=== PATIENT | female | born 1960 | race Caucasian/White ===

== ENCOUNTER → 2018-01-13 16:06 | Outpatient (CLI) | payer OTHER, SELFPAY ==
--- NOTE | 2018-01-13 16:09 | DI.CT.S_ITS ---
PROCEDURE: CT CHEST W CON INDICATIONS: MEDIASTINAL MASS, HISTORY OF LEFT BREAST CANCER 2016 TECHNIQUE: After the administration of intravenous contrast, 5 mm thick sections acquired from the pulmonary apices to the posterior costophrenic angles. 7 mm thick coronal and sagittal MIP reformats were acquired. For radiation dose reduction, the following was used: automated exposure control, adjustment of mA and/or kV according to patient size. COMPARISON: [facility], , THYROID, 08/12/2017, 15:17. FINDINGS: Image quality: Excellent. Lungs and pleura: Atelectasis in posterior lateral aspect of left lingula segment and left lung base is seen. No discrete dominant nodule or mass is seen. No pleural effusions or pneumothorax. Central and peripheral airways are patent and normal in caliber. Mediastinum: Heart size is normal. No pericardial effusion. No mediastinal or hilar adenopathy by size criteria. Thoracic aorta and central pulmonary arteries are normal in size. Esophagus is normal in caliber. Small hiatal hernia. Bones and chest wall: No suspicious bony lesions. No vertebral body compression fractures. No axillary or supraclavicular adenopathy by size criteria. Asymmetrically enlarged right thyroid lobe with a 4 x 2.6 x 5.6 cm soft tissue density nodule involving posterior aspect of lower pole right thyroid lobe extending into upper mediastinum along the right paratracheal space. Central area of necrosis is seen. Surgical clips are noted in left axilla. Abdomen: Visualized upper abdominal solid organs appear normal. Mild hepatic steatosis is seen. Upper abdominal bowel loops are normal in caliber. IMPRESSION: 1. Asymmetrically enlarged right thyroid lobe with suggestion of a 4 x 2.6 x 5.6 cm exophytic nodule involving posterior aspect of lower pole right thyroid lobe with inferior extension into right upper mediastinum. Central area of necrosis is seen. Finding may represent benign or malignant thyroid lesion. Consider nuclear medicine thyroid scan for further evaluation. Fundal aspiration of this nodule can also be done for tissue diagnosis. 2. No mediastinal or hilar adenopathy. 3. Left lingular atelectasis. Bilateral lung cannon are otherwise clear. Airway is patent. Dictated by: Agapito Anne M.D. on 01/13/2018 at 17:02 Approved by: Agapito Anne M.D. on 01/13/2018 at 17:08
[2018-01-13 17:42] LABS: Add Manual Diff / Slide Review NO; Basophils Percent Auto 0.9 % (0-2); Hematocrit 40.4 % (36-46); Hemoglobin 13.5 g/dL (12.0-16.0); Lymphocytes Percent Auto 32.3 % (25-40); Mean Corpuscular HGB Conc 33.5 % (30-36); Mean Corpuscular Hemoglobin 28.7 PG (26-34); Mean Corpuscular Volume 85.7 fL (80-100); Monocytes Percent Auto 7.6 % (3-14); Neutrophils Absolute Auto 4600 /uL (3000-5900); Neutrophils Percent Auto 56.2 % (50-75); Platelet Count 263 X10^3/uL (150-400); Red Blood Cell Count 4.71 X10^6/uL (4.0-5.2); White Blood Cell Count 8.1 X10^3/uL (4.5-11.0)
[2018-01-13 18:18] LABS: Alanine Aminotransferase 30 IU/L (9-52); Albumin Globulin Ratio 1.5 (1.0-2.8); Alkaline Phosphatase 97 U/L (38-126); Aspartate Aminotransferase 22 IU/L (14-36); BUN Creatinine Ratio 21.4 (6-22); Bilirubin Total 0.3 mg/dL (0.2-1.3); Blood Urea Nitrogen 15 mg/dL (7-17); Calcium 8.8 mg/dL (8.4-10.2); Carbon Dioxide 26 mmol/L (22-32); Chloride 104 mmol/L (98-107); Estimated Glomerular Filt Rate > 60.0 mL/min (>60); Globulin 2.6 g/dL (1.7-4.1); Glucose 103 mg/dL (70-100); HEMOLYSIS < 15 (0-50); Potassium 4.5 mmol/L (3.4-5.1); Sodium 140 mmol/L (137-145); Total Protein 6.6 g/dL (6.3-8.2)
== END ==
PROVIDERS: Family Provider Family Medicine; PCP Family Medicine; Visit Provider Nurse Practitioner Gerontology
DX: J98.59 Other diseases of mediastinum, not elsewhere classified (principal); C50.912 Malignant neoplasm of unspecified site of left female breast; E04.9 Nontoxic goiter, unspecified; J98.11 Atelectasis
CPT/HCPCS: 36415; 71260; 80053; 85025; Q9967

== ENCOUNTER 2018-01-21 14:25 | Oncology outpatient (ONC) | payer OTHER, SELFPAY ==
[2018-01-21 14:57] VITALS: BP 135/74; PULSE 59; RESP 18; TEMP 36.9; O2SAT 95
--- NOTE | 2018-01-21 15:03 | ONC.PN ---
PN -Subjective Interval history: Diagnosis: Breast cancer, T2 N0 ER NE negative her 2 positive Previous treatment: 1. Neoadjuvant chemotherapy with Taxol Herceptin and Perjeta for 4 cycles 2. lumpectomy and sentinel node biopsy October 2015 with complete pathologic response. 3. Adjuvant radiation 4. Herceptin to complete 1 year of therapy finishing in July 2016. Interval history: Patient is a 57-year-old woman who returns today for follow-up of breast cancer. Since her last visit here, she has been feeling generally well. She has no specific complaints today. She denies any new aches or pains. No changes in the breast that she can tell. She does have occasional swelling on the chest wall and under the arm on the left side but not in the hand. It has not been persistent or bothersome. She denies any shortness of breath or cough. No GI complaints. She denies any other changes in her health. Her medications include atenolol omeprazole and allergy medication. Social history: She works at the school in seafood processor. She does not smoke. Home Medications and Allergies Home Medications Medication Instructions Recorded Confirmed Type atenolol 0 #0 11/01/11 09/23/17 History omeprazole 20 mg PO QDAY PRN #0 11/01/11 09/23/17 History cetirizine 10 mg PO QDAYP PRN #0 07/30/17 09/23/17 History acetaminophen [Tylenol] 325 mg PO PRN PRN 01/21/18 01/21/18 History ibuprofen [Advil] 200 mg PO PRN PRN 01/21/18 01/21/18 History [id number] 01/21/18 History [Airborne (lysine HCl)] Allergies Allergy/AdvReac Type Severity Reaction Status Date / Time No Known Drug Allergies Allergy Unverified 09/23/17 14:49 Exam Vital signs: Last Vital Signs Temp 98.4 F 01/21/18 14:57 Pulse 59 L 01/21/18 14:57 Resp 18 01/21/18 14:57 BP 135/74 01/21/18 14:57 Pulse Ox 95 01/21/18 14:57 - Constitutional positive no acute distress, positive average body habitus - Routine HEENT Exam Head: Present: normocephalic, atraumatic Eye: Present: EOMI, PERRL. Absent: conjunctival icterus, scleral injection ENT: Present: mucous membranes moist, oropharynx clear - Routine Neck Exam Present: supple. Absent: lymphadenopathy, thyromegaly - Routine Chest/Breast/Axilla Exam Chest wall exam standard: Absent: tenderness Breast: Present: scars (She has a well-healed incision on the left breast just above the nipple. There are no masses on either side. No axillary adenopathy.). Absent: tenderness, mass - Routine Respiratory Exam Present: Clear to auscultation bilaterally. Absent: rales, wheezes - Routine Cardiovascular Exam Present: RRR, S1, S2. Absent: murmur - Routine Abdominal Exam Present: soft, normoactive bowel sounds. Absent: tenderness, organomegaly, mass - Routine Extremities Exam Absent: cyanosis, clubbing, edema Comments: There is no lymphedema. - Routine Back/Spine Exam Back/Spine: Absent: paraspinal tenderness, vertebral tenderness - Routine Skin Exam Present: intact. Absent: petechiae, rash - Routine Neurological Exam Present: alert, oriented X3 - Routine Psychiatric Exam Present: normal affect, normal thought process Results - Imaging Additional studies: Procedures Colonoscopy (04/29/12) Assessment and Plan (1) Breast cancer Problem details: 57-year-old woman with a history of stage II her 2 positive breast cancer who had a complete pathologic response to neoadjuvant chemotherapy. She is about 2 years out from her surgery. She has no evidence of recurrence and is doing well. She will be due for a mammogram sometime over the winter. She will return to clinic in about 6 months for follow-up. She does have a history of a thyroid nodule that previously has been biopsied and benign but it does appear to be enlarging by recent chest CT. It currently measures 4 x 2.6 x 5.6 cm. In 2016 it was 2.6 x 1.8 cm. Will make referral to Endocrinology for further evaluation. Current visit: No Status: Inactive
--- NOTE | 2018-01-21 15:09 | P.PNONC_ITS ---
PN -Subjective Interval history: Diagnosis: Breast cancer, T2 N0 ER CO negative her 2 positive Previous treatment: 1. Neoadjuvant chemotherapy with Taxol Herceptin and Perjeta for 4 cycles 2. lumpectomy and sentinel node biopsy October 2015 with complete pathologic response. 3. Adjuvant radiation 4. Herceptin to complete 1 year of therapy finishing in July 2016. Interval history: Patient is a 57-year-old woman who returns today for follow-up of breast cancer. Since her last visit here, she has been feeling generally well. She has no specific complaints today. She denies any new aches or pains. No changes in the breast that she can tell. She does have occasional swelling on the chest wall and under the arm on the left side but not in the hand. It has not been persistent or bothersome. She denies any shortness of breath or cough. No GI complaints. She denies any other changes in her health. Her medications include atenolol omeprazole and allergy medication. Social history: She works at the school in food service associate. She does not smoke. Home Medications and Allergies Home Medications Medication Instructions Recorded Confirmed Type atenolol 0 #0 11/01/11 09/23/17 History omeprazole 20 mg PO QDAY PRN #0 11/01/11 09/23/17 History cetirizine 10 mg PO QDAYP PRN #0 07/30/17 09/23/17 History acetaminophen [Tylenol] 325 mg PO PRN PRN 01/21/18 01/21/18 History ibuprofen [Advil] 200 mg PO PRN PRN 01/21/18 01/21/18 History [id number] 01/21/18 History [Airborne (lysine HCl)] Allergies Allergy/AdvReac Type Severity Reaction Status Date / Time No Known Drug Allergies Allergy Unverified 09/23/17 14:49 Exam Vital signs: Last Vital Signs Temp 98.4 F 01/21/18 14:57 Pulse 59 L 01/21/18 14:57 Resp 18 01/21/18 14:57 BP 135/74 01/21/18 14:57 Pulse Ox 95 01/21/18 14:57 - Constitutional positive no acute distress, positive average body habitus - Routine HEENT Exam Head: Present: normocephalic, atraumatic Eye: Present: EOMI, PERRL. Absent: conjunctival icterus, scleral injection ENT: Present: mucous membranes moist, oropharynx clear - Routine Neck Exam Present: supple. Absent: lymphadenopathy, thyromegaly - Routine Chest/Breast/Axilla Exam Chest wall exam standard: Absent: tenderness Breast: Present: scars (She has a well-healed incision on the left breast just above the nipple. There are no masses on either side. No axillary adenopathy.) . Absent: tenderness, mass - Routine Respiratory Exam Present: Clear to auscultation bilaterally. Absent: rales, wheezes - Routine Cardiovascular Exam Present: RRR, S1, S2. Absent: murmur - Routine Abdominal Exam Present: soft, normoactive bowel sounds. Absent: tenderness, organomegaly, mass - Routine Extremities Exam Absent: cyanosis, clubbing, edema Comments: There is no lymphedema. - Routine Back/Spine Exam Back/Spine: Absent: paraspinal tenderness, vertebral tenderness - Routine Skin Exam Present: intact. Absent: petechiae, rash - Routine Neurological Exam Present: alert, oriented X3 - Routine Psychiatric Exam Present: normal affect, normal thought process Results - Imaging Additional studies: Procedures Colonoscopy (04/29/12) Assessment and Plan (1) Breast cancer Problem details: 57-year-old woman with a history of stage II her 2 positive breast cancer who had a complete pathologic response to neoadjuvant chemotherapy. She is about 2 years out from her surgery. She has no evidence of recurrence and is doing well. She will be due for a mammogram sometime over the winter. She will return to clinic in about 6 months for follow-up. She does have a history of a thyroid nodule that previously has been biopsied and benign but it does appear to be enlarging by recent chest CT. It currently measures 4 x 2.6 x 5.6 cm. In 2016 it was 2.6 x 1.8 cm. Will make referral to Endocrinology for further evaluation. Current visit: No Status: Inactive
== END 2018-01-22 12:00 ==
LOC: ONC 14:27
PROVIDERS: Family Provider Family Medicine; PCP Family Medicine
DX: Z08 Encounter for follow-up examination after completed treatment for malignant neoplasm (principal); Z85.3 Personal history of malignant neoplasm of breast; E04.1 Nontoxic single thyroid nodule
CPT/HCPCS: 99215

== ENCOUNTER → 2018-07-08 11:40 | Outpatient (CLI) | payer OTHER, SELFPAY ==
--- NOTE | 2018-07-08 | DI.MG.S_ITS ---
BILATERAL DIGITAL SCREENING MAMMOGRAM 3D/2D WITH CAD POST LUMPECTOMY: 07/08/2018 CLINICAL: Routine screening. Personal history of left breast cancer. Family history of breast cancer. Comparison is made to exams dated: 06/21/2017 mammogram, 02/11/2017 mammogram, 05/31/2016 mammogram, 05/30/2015 mammogram, 11/26/2011 mammogram, and 01/07/2013 mammogram - [facility]. There are scattered fibroglandular elements in both breasts. Current study was also evaluated with a Computer Aided Detection (CAD) system. There are benign post operative findings in the left breast. No significant masses, calcifications, or other findings are seen in either breast. There has been no significant interval change. IMPRESSION: There is no mammographic evidence of malignancy. A 1 year screening mammogram is recommended. This exam was interpreted at Station ID: [id number]. NOTE: For mammograms, a report in lay terms will be sent to the patient. Approximately 15% of breast malignancies will not be visualized mammographically. In the management of a palpable breast mass, a negative mammogram must not discourage biopsy of a clinically suspicious lesion. Electronically Signed By: Juan armas/huang:07/08/2018 16:39:09 copy to: José Manuel Holm letter sent: Normal Exam ACR BI-RADS Category 2: Benign Finding(s) 3342F
== END ==
PROVIDERS: Family Provider Family Medicine; PCP Family Medicine
DX: Z12.31 Encounter for screening mammogram for malignant neoplasm of breast (principal); Z85.3 Personal history of malignant neoplasm of breast; Z80.3 Family history of malignant neoplasm of breast
CPT/HCPCS: 77063; 77067

== ENCOUNTER → 2018-09-24 14:43 | Outpatient (CLI) | payer OTHER, SELFPAY ==
--- NOTE | 2018-09-24 14:46 | DI.RAD.S_ITS ---
PROCEDURE: XR CHEST 2V INDICATIONS: History breast cancer left her 2 Mary positive TECHNIQUE: 2 views of the chest were acquired. COMPARISON: [facility], CR, CHEST 1 VIEW, 07/21/2015, 17:01. [facility], CT, CT CHEST W CON, 01/13/2018, 16:26. FINDINGS: Surgical changes and devices: There are surgical clips in the left breast and axilla. Lungs and pleura: Lungs are clear. No pleural effusions or pneumothorax. Mediastinum: Mediastinal contours are normal. Heart size is normal. Bones and chest wall: No suspicious bony abnormalities. Soft tissues appear unremarkable. IMPRESSION: No active cardiopulmonary disease. Dictated by: Petra Abreu M.D. on 09/24/2018 at 16:46 Approved by: Petra Abreu M.D. on 09/24/2018 at 16:48
== END ==
PROVIDERS: Family Provider Family Medicine; PCP Family Medicine; Visit Provider Specialist
DX: Z08 Encounter for follow-up examination after completed treatment for malignant neoplasm (principal); Z85.3 Personal history of malignant neoplasm of breast
CPT/HCPCS: 71046

== ENCOUNTER → 2019-09-12 12:38 | Outpatient (CLI) | payer OTHER, SELFPAY ==
--- NOTE | 2019-09-12 12:39 | DI.MG.S_ITS ---
BILATERAL DIGITAL SCREENING MAMMOGRAM 3D/2D WITH CAD POST LUMPECTOMY: 09/12/2019 CLINICAL: Routine screening. Personal history of left breast cancer. Family history of breast cancer. Comparison is made to exams dated: 07/08/2018 mammogram, 06/21/2017 mammogram, and 05/31/2016 mammogram - [facility]. There are scattered fibroglandular elements in both breasts. Current study was also evaluated with a Computer Aided Detection (CAD) system. There are benign post operative findings in the left breast. No significant masses, calcifications, or other findings are seen in either breast. There has been no significant interval change. IMPRESSION: There is no mammographic evidence of malignancy. A 1 year screening mammogram is recommended. This exam was interpreted at Station ID: [id number]. NOTE: For mammograms, a report in lay terms will be sent to the patient. Approximately 15% of breast malignancies will not be visualized mammographically. In the management of a palpable breast mass, a negative mammogram must not discourage biopsy of a clinically suspicious lesion. Electronically Signed By: Magen pereira/huang:09/14/2019 08:07:30 copy to: José Manuel Holm letter sent: Normal Exam ACR BI-RADS Category 2: Benign Finding(s) 3342F
== END ==
PROVIDERS: Family Provider Family Medicine; PCP Family Medicine; Referring Provider Internal Medicine Hematology & Oncology; Visit Provider Internal Medicine Hematology & Oncology
DX: Z12.31 Encounter for screening mammogram for malignant neoplasm of breast (principal); Z85.3 Personal history of malignant neoplasm of breast; Z80.3 Family history of malignant neoplasm of breast
CPT/HCPCS: 77063; 77067

== ENCOUNTER → 2020-05-04 14:46 | Outpatient (CLI) | payer OTHER, SELFPAY ==
[2020-05-04 15:37] LABS: Add Manual Diff / Slide Review NO; Basophils Absolute Auto 100 /uL (0-100); Basophils Percent Auto 0.9 % (0-2); Eosinophils Absolute Auto 200 /uL (0-450); Eosinophils Percent Auto 2.3 % (2-4); Hematocrit 43.1 % (36-46); Hemoglobin 14.3 g/dL (12.0-16.0); Lymphocytes Absolute Auto 3100 /uL (1100-4500); Lymphocytes Percent Auto 33.4 % (25-40); Mean Corpuscular HGB Conc 33.1 % (30-36); Mean Corpuscular Hemoglobin 28.3 PG (26-34); Mean Corpuscular Volume 85.5 fL (80-100); Monocytes Absolute Auto 600 /uL (0-900); Neutrophils Absolute Auto 5200 /uL (1500-7000); Neutrophils Percent Auto 56.4 % (50-75); Platelet Count 277 X10^3/uL (150-400); Red Blood Cell Count 5.04 X10^6/uL (4.0-5.2); Red Cell Distribution Width 13.2 % (11.6-14.8); White Blood Cell Count 9.2 X10^3/uL (4.5-11.0)
[2020-05-04 16:01] LABS: Alanine Aminotransferase 31 IU/L (<35); Albumin 4.5 g/dL (3.5-5.0); Albumin Globulin Ratio 1.5 (1.0-2.8); Alkaline Phosphatase 116 U/L (38-126); Aspartate Aminotransferase 27 IU/L (14-36); BUN Creatinine Ratio 24.7 (6-22); Bilirubin Total 0.3 mg/dL (0.2-1.3); Blood Urea Nitrogen 18 mg/dL (7-17); Calcium 9.1 mg/dL (8.4-10.2); Carbon Dioxide 27 mmol/L (22-32); Chloride 102 mmol/L (98-107); Estimated Glomerular Filt Rate > 60.0 mL/min (>60); Glucose 169 mg/dL (70-100); HEMOLYSIS < 15 (0-50); Potassium 4.4 mmol/L (3.4-5.1); Sodium 136 mmol/L (137-145); Total Protein 7.5 g/dL (6.3-8.2)
== END ==
PROVIDERS: Referring Provider Internal Medicine; Visit Provider Internal Medicine
DX: C50.919 Malignant neoplasm of unspecified site of unspecified female breast (principal)
CPT/HCPCS: 36415; 80053; 85025

== ENCOUNTER → 2020-05-09 16:05 | Outpatient (CLI) | payer OTHER, SELFPAY ==
--- NOTE | 2020-05-09 | DI.US.S_ITS ---
PROCEDURE: US PELVIC COMPLETE INDICATIONS: Pelvic and perineal pain TECHNIQUE: Real-time scanning was performed of the pelvic organs, with image documentation. Additional endovaginal scanning was necessary due to incomplete visualization of the adnexal and endometrial structures by transabdominal scanning. COMPARISON: [facility], , PELVIC COMPLETE, 11/19/2013, 10:09. FINDINGS: Uterus: Uterus is normal in size at 7.5 x 2.6 x 4.6 cm. The endometrium measures 3 mm in combined thickness. Ovaries: The right ovary is not seen. The left ovary has been previously removed. No adnexal masses are seen on either side. Other: No pathologic free abdominal or pelvic fluid. IMPRESSION: Nonvisualization of the right ovary. Prior left oophorectomy. Unremarkable appearing uterus. Dictated by: Dallas Myrick M.D. on 05/09/2020 at 16:54 Approved by: Dallas Myrick M.D. on 05/09/2020 at 16:56
== END ==
PROVIDERS: PCP Family Medicine; Referring Provider Family Medicine; Visit Provider Family Medicine
DX: R10.2 Pelvic and perineal pain (principal)
CPT/HCPCS: 76830; 76856

== ENCOUNTER → 2020-06-09 14:27 | Outpatient (CLI) | payer OTHER, SELFPAY ==
--- NOTE | 2020-06-09 15:41 | DIET.PN ---
Diabetes Intake: Initial Assessment Assess: Ms. León is a 60 yof referred for newly diagnosed type 2 diabetes. She has a pmhx significant for breast cancer with chemotherapy (2016). Since diagnosis she has been monitoring her fasting blood glucose and trying to make healthy eating habits. 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 She usually does not eat breakfast, but has started eating cereal in hopes of helping to manage her blood sugar. 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 Intervention: 1. Completed intake assessment. Discussed barriers to care. 2. Discussed pathophysiology of diabetes. Reviewed A1c and its correlation to blood glucose numbers. Discussed recommended BG ranges. 3. Discussed importance of self-monitoring, how often, and when to check. 4. Reviewed hyper/hypoglycemia and treatment. 5. Reviewed safe disposal of equipment (strip/lancets/insulin needles). 6. Created SMART goals for pt self-care and success. 7. Discussed program curriculum outline and class needs based on individual goals. SMART Goals: 1. Pt goal A1c <7.0 through monitoring fbg and 2 hr PP daily and weight loss goal of 198 lb (10lb) in 3 mo with overall goal of 170 lb. Monitor/Evaluate: Pt will attend full DSME program. Basic Nutrition class scheduled for Jun 14.
== END ==
PROVIDERS: PCP Family Medicine; Referring Provider Family Medicine; Visit Provider Family Medicine
DX: E11.9 Type 2 diabetes mellitus without complications (principal); E66.9 Obesity, unspecified; Z71.3 Dietary counseling and surveillance; Z79.84 Long term (current) use of oral hypoglycemic drugs; Z68.35 Body mass index [BMI] 35.0-35.9, adult; Z85.3 Personal history of malignant neoplasm of breast
CPT/HCPCS: G0108

== ENCOUNTER → 2020-06-14 13:52 | Outpatient (CLI) | payer OTHER, SELFPAY ==
--- NOTE | 2020-06-14 16:15 | DIET.PN ---
Diabetes Exercise/Lifestyle change: 1. Importance of exercise 2. FITT (frequency, intensity, time, type) 3. Strength training tips and guidelines 4. Glucose monitoring/ranges before and after a. Carbohydrate needs based on glucose ranges and duration/intensity of exercise b. Rule of 15 5. Proper foot attire 6. Developing strategies for behavior change 7. SMART Goal Setting 8. Home exercise routine demonstration (as a class)
== END ==
PROVIDERS: PCP Family Medicine; Referring Provider Family Medicine; Visit Provider Family Medicine
DX: E11.9 Type 2 diabetes mellitus without complications (principal); Z71.3 Dietary counseling and surveillance
CPT/HCPCS: G0109

== ENCOUNTER → 2020-06-21 13:50 | Outpatient (CLI) | payer OTHER, SELFPAY ==
--- NOTE | 2020-06-21 15:38 | DIET.PN ---
Diabetes: Healthy Eating 1 Intervention: ? Discussed pathophysiology of diabetes and impact of nutrition/diet on blood sugar control.? Discussed fed versus non-fed state.?? ? Reviewed importance of Balance, Variety, and Moderation. ? Discussed the effect of carbohydrates/protein/fat on blood sugar control.? ? Stressed importance of consistent carbohydrate intake at each meal and provided instructions for recommended servings/portions of carbohydrates/protein per meal. Provided educational material. ? Reviewed carbohydrate counting and measuring carbohydrate content via serving sizes and reading nutrition labels.? Provided handouts.?? ? Discussed the difference between simple versus complex carbohydrates and the effect of fiber on blood sugar control.? Discussed various methods to increase fiber content in diet. ? Discussed the plate method for creating more carbohydrate conscious balanced meals. ? Stressed importance of meal timing and not going >4-5 hours between meals. Encouraged adding protein to evening snack to support glucose control overnight. ? Discussed importance of making dietary habits part of lifestyle change.
== END ==
PROVIDERS: PCP Family Medicine; Referring Provider Family Medicine; Visit Provider Family Medicine
DX: E11.9 Type 2 diabetes mellitus without complications (principal); Z71.3 Dietary counseling and surveillance
CPT/HCPCS: G0109

== ENCOUNTER → 2020-06-28 13:55 | Outpatient (CLI) | payer OTHER, SELFPAY ==
--- NOTE | 2020-06-28 16:25 | DIET.PN ---
Diabetes: Healthy Eating 2 Intervention: Fats effects on glucose, weight, heart disease, cholesterol Sat Vs Unsat Protein- animal and plant based options Low, med, high fat meats Sugar substitutes Sodium Health claims Grocery shopping guidelines Eating away from home Alcohol Sick day guidelines Ketone Testing
== END ==
PROVIDERS: PCP Family Medicine; Referring Provider Family Medicine; Visit Provider Family Medicine
DX: E11.9 Type 2 diabetes mellitus without complications (principal); Z71.3 Dietary counseling and surveillance
CPT/HCPCS: G0109

== ENCOUNTER → 2020-08-15 14:24 | Outpatient (CLI) | payer OTHER, SELFPAY ==
--- NOTE | 2020-08-15 15:04 | DIET.PN ---
DIABETES Nutrition Initial Assessment:? ASSESS:?? Ms. León is a 60 yof?referred for type 2 diabetes seen as part of DSME program. She continues to monitor her FBG daily ranging between 110-140. She has been walking after work several times per week. Changes to eating habits include carb counting, portion control, and less take out aside from recent vacation. ??? LABS: Per pt report:? [id number] ? MEDS:?? metf 500mg BID ? DIET: Per 24-hour recall:? 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 Weight: 196lb (down 12lb) Height: 64in BMI: ? 33.6 ? Exercise:? walking 2-3 days/week (right after work) NUTRITION DX 1. Altered Nutrition related labs related to impaired glucose metabolism, lack of previous exposure to accurate nutrition information as evidenced by pt report, dx of diabetes, previous diet high in refined carbohydrates.? INTERVENTION(s): 1. Reviewed pathophysiology of diabetes and impact of nutrition/diet on blood sugar control.? Discussed fed versus non-fed state.?? 2. Discussed the effect of carbohydrates/protein/fat on blood sugar control.? Stressed importance of consistent carbohydrate intake at each meal and provided instructions for recommended servings/portions of carbohydrates/protein per meal. Provided pt with educational material. 3. Reviewed carbohydrate counting and measuring carbohydrate content via serving sizes and reading nutrition labels.? Provided handouts.?? 4. Discussed the difference between simple versus complex carbohydrates and the effect of fiber on blood sugar control.? Discussed various methods to increase fiber content in diet. 5. Stressed importance of meal timing and not going >4-5 hours between meals. Encouraged adding protein to evening snack to support glucose control overnight. Patient agreeable. 6. Discussed healthy weight loss goals of 1-2lbs per week through diet and exercise.? Pt agreeable to walking at least 30 minutes daily. 7. Recommend monitoring fasting and alternating 2 hr PP mealtime glucose. MONITOR/EVALUATE: Anticipate good compliance.? Will follow up after new labs.
== END ==
PROVIDERS: PCP Family Medicine; Referring Provider Family Medicine; Visit Provider Family Medicine
DX: E11.9 Type 2 diabetes mellitus without complications (principal); E66.9 Obesity, unspecified; Z79.84 Long term (current) use of oral hypoglycemic drugs; Z68.33 Body mass index [BMI] 33.0-33.9, adult; Z71.3 Dietary counseling and surveillance
CPT/HCPCS: G0109

== ENCOUNTER → 2020-09-17 09:55 | Outpatient (CLI) | payer OTHER, SELFPAY ==
--- NOTE | 2020-09-17 09:56 | DI.MG.S_ITS ---
BILATERAL DIGITAL SCREENING MAMMOGRAM 3D/2D WITH CAD: 09/17/2020 CLINICAL: Routine screening. Personal history of left breast cancer. Family history of breast cancer. Comparison is made to exams dated: 09/12/2019 mammogram, 07/08/2018 mammogram, and 06/21/2017 mammogram - [facility]. There are scattered fibroglandular elements in both breasts. Current study was also evaluated with a Computer Aided Detection (CAD) system. There are benign post operative findings in the left breast. No significant masses, calcifications, or other findings are seen in either breast. There has been no significant interval change. IMPRESSION: BENIGN There is no mammographic evidence of malignancy. A 1 year screening mammogram is recommended. This exam was interpreted at Station ID: [id number]. NOTE: For mammograms, a report in lay terms will be sent to the patient. Approximately 15% of breast malignancies will not be visualized mammographically. In the management of a palpable breast mass, a negative mammogram must not discourage biopsy of a clinically suspicious lesion. Electronically Signed By: Magen pereira/huang:09/19/2020 07:35:53 copy to: José Manuel Holm letter sent: Normal Exam ACR BI-RADS Category 2: Benign Finding(s) 3342F
== END ==
PROVIDERS: PCP Family Medicine; Referring Provider Family Medicine; Visit Provider Family Medicine
DX: Z12.31 Encounter for screening mammogram for malignant neoplasm of breast (principal)
CPT/HCPCS: 77063; 77067

== ENCOUNTER → 2021-02-16 14:54 | Outpatient (CLI) | payer OTHER, SELFPAY ==
[2021-02-16 15:26] LABS: Add Manual Diff / Slide Review NO; Basophils Absolute Auto 100 /uL (0-100); Basophils Percent Auto 0.4 % (0-2); Eosinophils Absolute Auto 100 /uL (0-450); Eosinophils Percent Auto 0.5 % (2-4); Hematocrit 40.2 % (36-46); Hemoglobin 13.5 g/dL (12.0-16.0); Lymphocytes Absolute Auto 2100 /uL (1100-4500); Lymphocytes Percent Auto 13.6 % (25-40); Mean Corpuscular HGB Conc 33.5 % (30-36); Mean Corpuscular Hemoglobin 28.6 PG (26-34); Mean Corpuscular Volume 85.4 fL (80-100); Monocytes Absolute Auto 1100 /uL (0-900); Neutrophils Absolute Auto 11900 /uL (1500-7000); Neutrophils Percent Auto 78.5 % (50-75); Platelet Count 302 X10^3/uL (150-400); Red Blood Cell Count 4.71 X10^6/uL (4.0-5.2); Red Cell Distribution Width 13.1 % (11.6-14.8); White Blood Cell Count 15.2 X10^3/uL (4.5-11.0)
[2021-02-16 16:51] LABS: Alanine Aminotransferase 23 IU/L (<35); Albumin 4.5 g/dL (3.5-5.0); Albumin Globulin Ratio 1.7 (1.0-2.8); Alkaline Phosphatase 92 U/L (38-126); Aspartate Aminotransferase 24 IU/L (14-36); BUN Creatinine Ratio 18.3 (6-22); Bilirubin Total 0.6 mg/dL (0.2-1.3); Blood Urea Nitrogen 13 mg/dL (7-17); Calcium 9.7 mg/dL (8.4-10.2); Carbon Dioxide 27 mmol/L (22-32); Chloride 100 mmol/L (98-107); Estimated Glomerular Filt Rate > 60.0 mL/min (>60); Globulin 2.6 g/dL (1.7-4.1); Glucose 128 mg/dL (80-110); HEMOLYSIS < 15 (0-50); Lipase 57 U/L (23-300); Potassium 4.3 mmol/L (3.4-5.1); Sodium 137 mmol/L (137-145); Total Protein 7.1 g/dL (6.3-8.2)
== END ==
PROVIDERS: PCP Family Medicine; Referring Provider Family Medicine; Visit Provider Family Medicine
DX: R10.9 Unspecified abdominal pain (principal); E11.9 Type 2 diabetes mellitus without complications; I10 Essential (primary) hypertension
CPT/HCPCS: 36415; 80053; 83690; 85025

== ENCOUNTER → 2021-02-22 11:58 | Outpatient (CLI) | payer OTHER, SELFPAY ==
--- NOTE | 2021-02-22 12:42 | DI.CT.S_ITS ---
PROCEDURE: CT ABDOMEN PELVIS W CON INDICATIONS: Abdominal pain, query diverticulitis TECHNIQUE: After the administration of oral and IV contrast, axial sections were acquired from the lung bases to the pubic symphysis. Coronal and sagittal reformats were performed. For radiation dose reduction, the following was used: automated exposure control, adjustment of mA and/or kV according to patient size. COMPARISON: None. FINDINGS: Image quality: Excellent. Lung bases: Unremarkable. Heart: No significant findings. ABDOMEN: Liver: Decreased attenuation of liver, compatible with hepatic steatosis. Normal contour. Gallbladder: No gallbladder wall thickening or pericholecystic fluid. Biliary ducts: Unremarkable. Pancreas: Unremarkable. Spleen: Unremarkable. Adrenal Glands: Unremarkable. Kidneys and Ureters: Unremarkable. Stomach and Bowel: Trace hiatal hernia. No evidence of intestinal obstruction. Descending/sigmoid diverticulosis. Small focus of infiltrative change in the descending colon, compatible with acute diverticulitis (series 2, image 48). Peritoneum: No abnormal intraperitoneal fluid. No free air. Ventral Wall: No hernia. Abdominal Nodes: No retroperitoneal or mesenteric adenopathy by size criteria. Vessels: Aorta and inferior vena cava are normal in size. PELVIS: Pelvic Organs: Unremarkable. Bladder: Unremarkable. Pelvic Nodes: No enlarged lymph nodes. Miscellaneous: No inguinal hernias are seen. Bones: No significant abnormality. Minimal grade 1 anterolisthesis at L4-5. IMPRESSION: 1. Acute diverticulitis of the descending colon. Dictated by: Silvano Peralta M.D. on 02/22/2021 at 15:34 Approved by: Silvano Peralta M.D. on 02/22/2021 at 15:40
== END ==
PROVIDERS: PCP Family Medicine; Referring Provider Family Medicine; Visit Provider Family Medicine
DX: K57.32 Diverticulitis of large intestine without perforation or abscess without bleeding (principal)
CPT/HCPCS: 74177

== ENCOUNTER → 2021-03-15 14:33 | Outpatient (CLI) | payer OTHER, SELFPAY ==
--- NOTE | 2021-03-15 14:37 | DI.RAD.S_ITS ---
PROCEDURE: XR LUMBAR SPINE 2-3V INDICATIONS: Lumbago with sciatica, right side TECHNIQUE: 3 views of the lumbar spine were acquired. COMPARISON: None. FINDINGS: Bones: 5 [id number]-cuk-aadlysl vertebrae are present. There is normal bony alignment. No vertebral body compression fractures. No suspicious bony lesions. Multilevel mild disc space narrowing is present throughout the lumbar spine most notable at L4-5. Mild to moderate foraminal narrowing is noted L5-S1. Soft tissues: Overlying bowel gas pattern is normal. No suspicious soft tissue calcifications. IMPRESSION: Degenerative changes most noted L4-5, L5-S1. Dictated by: Bettye Weston M.D. on 03/15/2021 at 16:50 Approved by: Bettye Weston M.D. on 03/15/2021 at 16:50
--- NOTE | 2021-03-15 14:37 | DI.RAD.S_ITS ---
PROCEDURE: XR HIP W PEL IF DONE RT 2V INDICATIONS: Lumbago with sciatica, right side TECHNIQUE: AP pelvis with lateral view(s) of the right hip(s). COMPARISON: None. FINDINGS: Bones: No fractures or dislocations. Pelvic ring appears intact. No suspicious bony lesions. Soft tissues: The visualized bowel gas pattern is normal. No suspicious soft tissue calcifications. IMPRESSION: No fracture. No osseous lesion. If symptoms and/or clinical suspicion for pathology persists, further assessment with repeat radiographs (7-10 days) or advanced imaging (e.g. CT, MRI or bone scan) should be considered. Dictated by: Scarlet Alcala MD, PhD on 03/15/2021 at 16:59 Approved by: Scarlet Alcala MD, PhD on 03/15/2021 at 17:00
== END ==
PROVIDERS: PCP Family Medicine; Referring Provider Family Medicine; Visit Provider Family Medicine
DX: M47.816 Spondylosis without myelopathy or radiculopathy, lumbar region (principal); M47.817 Spondylosis without myelopathy or radiculopathy, lumbosacral region; M54.41 Lumbago with sciatica, right side
CPT/HCPCS: 72100; 73502

== ENCOUNTER → 2021-10-02 10:57 | Outpatient (CLI) | payer OTHER, SELFPAY ==
--- NOTE | 2021-10-02 10:58 | DI.MG.S_ITS ---
BILATERAL DIGITAL SCREENING MAMMOGRAM 3D/2D WITH CAD: 10/02/2021 CLINICAL: Routine screening. Breast cancer. Family history of breast cancer. Comparison is made to exams dated: 09/17/2020 mammogram, 09/12/2019 mammogram, and 07/08/2018 mammogram - [facility]. There are scattered fibroglandular elements in both breasts. Current study was also evaluated with a Computer Aided Detection (CAD) system. There are benign post operative findings in the left breast. No significant masses, calcifications, or other findings are seen in either breast. There has been no significant interval change. IMPRESSION: BENIGN There is no mammographic evidence of malignancy. A 1 year screening mammogram is recommended. This exam was interpreted at Station ID: [id number]. NOTE: For mammograms, a report in lay terms will be sent to the patient. Approximately 15% of breast malignancies will not be visualized mammographically. In the management of a palpable breast mass, a negative mammogram must not discourage biopsy of a clinically suspicious lesion. Electronically Signed By: Magen pereira/huang:10/02/2021 17:47:57 letter sent: Normal Exam ACR BI-RADS Category 2: Benign Finding(s) 3342F
== END ==
PROVIDERS: PCP Family Medicine; Referring Provider Family Medicine; Visit Provider Family Medicine
DX: Z12.31 Encounter for screening mammogram for malignant neoplasm of breast (principal); C50.919 Malignant neoplasm of unspecified site of unspecified female breast; Z80.3 Family history of malignant neoplasm of breast
CPT/HCPCS: 77063; 77067

== ENCOUNTER 2022-08-24 12:05 | Day surgery (SDC) | payer OTHER, SELFPAY ==
--- NOTE | 2022-08-24 | PATH_ITS ---
[facility] Accession Number: [id number] No. of containers..03 Tissue . 01 Material submitted: . PART A: colon - HEPATIC FLEXURE POLYP PART B: colon - DESCENDING COLON POLYP X7 PART C: colon - SIGMOID COLON POLYP X6 . 01 Diagnosis: A. Hepatic Flexure Colon Polyp, Biopsy: Serrated polyp with focal crypt architectural features consistent with sessile serrated adenoma. . B. Descending Colon Polyps, Biopsy: Sessile serrated adenoma x1. Hyperplastic polyps. . C. Sigmoid Colon Polyps, Biopsy: Hyperplastic polyps. Additional colonic mucosa with benign lymphoid aggregates. [facility] 08/28/2022 1152 Local . 01 Electronically signed: . Erma Sandoval MD, Pathologist NPI- [id number] . 01 Gross description: . Part A: HEPATIC FLEXURE POLYP: Received in formalin are 2 fragment(s) of l[place], soft tissue measuring 0.1 x 0.1 x 0.1 cm to 0.3 x 0.3 x 0.2 cm submitted entirely in 1 cassette(s) Part B: DESCENDING COLON POLYP X7: Received in formalin are multiple fragment(s) of [place], soft tissue measuring 0.1 x 0.1 x 0.1 cm to 0.3 x 0.2 x 0.2 cm submitted entirely in 1 cassette(s) Part C: SIGMOID COLON POLYP X6: Received in formalin are multiple fragment(s) of [place], soft tissue measuring 0.1 x 0.1 x 0.1 cm to 0.4 x 0.4 x 0.2 cm submitted entirely in 1 cassette(s) /MAIRA 08/27/2022 1854 Local . 01 Pathologist provided ICD-10: D12.3, D12.4, D12.5 . 01 CPT . 717769, 482509, 213797 Specimen Comment: A courtesy copy of this report has been sent to [facility] Pathology Performed at: 01 [facility] [address] [place] [address] [id number] MD Stefano Treadwell MD Phone: [phone]
[2022-08-24] MEDS: LACTATED RINGERS 1,000 ML 42 ML IV (12:35)
[2022-08-24 12:39] VITALS: BP 138/85; PULSE 63; RESP 16; TEMP 36.4; O2SAT 97; BMI 35.3
--- NOTE | 2022-08-24 13:56 | PM.HP.1 ---
History of Present Illness History of Present Illness Date Patient Seen: 08/24/22 Time Patient Seen: 13:56 Chief complaint: Screening Colonoscopy Narrative: Mrs. León presents today for a screening colonoscopy. Her last colonoscopy was 10 years ago. She does have a family history of colon cancer in her paternal grandmother and paternal aunt. She has no concerning symptoms no bleeding although she does occasionally suffer from diarrhea which she attributes to taking metformin. Also she is had an appendectomy when she was 13 years old and on occasion has right lower quadrant/hip pain. She has no further questions about a colonoscopy [facility] Medical History (Updated 08/24/22 @ 13:57 by Elis Moore MD) Breast cancer History of left breast cancer HTN (hypertension) Surgical History History of History of removal of Port-a-Cath Hx of appendectomy Hx of arthroscopic knee surgery Hx of lumpectomy Hx of partial thyroidectomy Hx of tubal ligation Status post delivery Family History Mother Hypertension Father Hypertension Social History marital status: household members: spouse occupational status: employed Smoking Status: Former smoker alcohol intake: current substance use type: does not use eating out: 1-3 times/week Type(s) of exercise: none Meds Home Medications and Allergies Home Medications Medication Instructions Recorded Confirmed Type atenolol 50 mg tablet 50 mg DAILY ##0 11/01/11 08/24/22 History ibuprofen 200 mg tablet (Advil) 200 mg PO PRN PRN Pain (Scale 01/21/18 08/24/22 History Score 1-3) melatonin 3 mg tablet 3 mg PO BEDTIME PRN Insomnia 11/24/19 08/24/22 History omeprazole 20 mg capsule,delayed 20 mg PO DAILY 11/24/19 08/24/22 History release zinc 50 mg tablet 50 mg PO DAILY 11/24/19 08/24/22 History fluticasone propionate 50 1 spray intranasal DAILY 05/11/20 08/24/22 History mcg/actuation nasal spray,suspension metformin 500 mg tablet 2,000 mg PO DAILY 05/11/20 08/24/22 History atorvastatin 10 mg tablet (Lipitor) 20 mg PO DAILY 12/07/20 08/24/22 History cetirizine 10 mg capsule (Zyrtec) 10 mg PO DAILY 12/07/20 08/24/22 History coQ10 (ubiquinol) 200 mg capsule 200 mg PO DAILY 12/07/20 08/24/22 History vitamin B12 1 mg-folic acid 0.8 mg 1 tab PO DAILY 12/07/20 08/24/22 History tablet glipizide 2.5 mg tablet, extended 2.5 mg PO 1XD 12/06/21 08/24/22 History release 24 hr sodium,potassium,mag sulfates 17.5 See Rx Instructions PO .COMPLEX 07/16/22 08/24/22 Rx gram-3.13 gram-1.6 gram oral soln #354 mL (Suprep Bowel Prep Kit) losartan 50 mg tablet 50 mg PO DAILY 08/24/22 08/24/22 History Allergies Allergy/AdvReac Type Severity Reaction Status Date / Time latex AdvReac Verified 08/24/22 12:36 Penicillins AdvReac Verified 08/24/22 12:36 Exam Vital Signs (past 8 hours): - 08/24/22 12:39 Temperature 97.6 F Pulse Rate 63 Respiratory Rate 16 Blood Pressure 138/85 Pulse Oximetry 97 Oxygen Delivery Method Room Air Oxygen Delivery Method Room Air Const General: cooperative, healthy appearing and comfortable Nutritional Appearance: obese HENMT Head: normal to inspection Resp Effort & Inspection: normal respiratory effort and able to speak in complete sentences GI Palpation: soft and No tender Assessment & Plan Assessment and plan (1) Family history of colon cancer: Status: Acute (2) Colon cancer screening: Status: Acute Assessment & Plan narrative: Presents today for screening colonoscopy I discussed the risks benefits and alternatives including but not limited to perforation of the colon and an incomplete exam she fully understands these risks and would like to proceed.
--- NOTE | 2022-08-24 14:01 | P.OP.COLON_ITS ---
Operative Date/Time/Diagnoses Date of procedure: 08/24/22 Time of procedure: 15:07 Pre-op diagnosis: Family history of colon cancer Post-op diagnosis: same Procedure & Clinicians Study performed: Colonoscopy and biopsy Same procedure as scheduled: Yes Indications: Family history of colon cancer Surgeon: Elis Moore Procedure Notes Procedure in detail: Patient was taken to the endoscopy suite and placed in a left lateral decubitus position. Anesthesia provider induced conscious sedation and monitored throughout the case. Time-out was performed. Digital rectal exam was performed. There were 3 large external hemorrhoids that were not irritated. There were no masses or strictures. Colonoscope was introduced into the anal canal and advanced through to the cecum. The bowel prep was good [place] bowel prep score of 2. A photograph of the appendiceal orifice was obtained. The scope was then withdrawn slowly for 38 minutes including biopsies. There were several small polyps throughout colon. There were also several large di verticula throughout the colon including the transverse colon and the right side colon. Several photographs of diverticula were obtained. The 1st polyp was seen at the hepatic flexure it was small (less than 1 cm) and removed with the biopsy forceps. The descending colon had 7 small polyps that were all removed with forceps and sent in the same specimen jar. Pulling into the sigmoid colon another 6 small polyps were biopsied and sent for specimens. The scope was then retroflexed and a photograph of the internal hemorrhoidal piles was obtained they appeared within normal limits. Patient tolerated procedure well and went in good condition to postoperative care unit Findings: divertiulosis and polyp(s) Specimen(s): other (1. Small hepatic flexure polyp 2. Descending small colon polyps x7 3. Sigmoid small colon polyps times 6) Complications: none Post-procedure Recommendations: Colonoscopy in 3 years Plan for aftercare: Due to the number of call: Polyps that were seen assuming that more than 5 of them will come back as tubular adenomas: The follow-up recommendation would be 3 years. With a family history of colon cancer every 5 year screening is recommended regardless of whether there are polyps or not. I would also recommend a fiber supplement twice daily see discharge paperwork. Disposition: PACU
[2022-08-24 15:03] VITALS: BP 137/90; PULSE 62; RESP 16; TEMP 36.2; O2SAT 95
[2022-08-24 15:08] VITALS: BP 135/87; PULSE 63; RESP 14; O2SAT 96
[2022-08-24 15:13] VITALS: BP 140/90; PULSE 60; RESP 12; O2SAT 98
[2022-08-24 15:21] VITALS: BP 156/91; PULSE 58; RESP 12; O2SAT 98
[2022-08-24 15:55] VITALS: BP 168/82; PULSE 57; RESP 17; TEMP 36.3; O2SAT 97
--- NOTE | 2022-08-24 16:04 | SUR.PHASEII ---
Pt states it is a gas pain, decreased with movement, passing gas, and ambulation. smiling cooperative. abdomen soft, nondistended. Dr. Mullins at bedside, encouraged over the counter simethicone. Anesthesia aware of systolic in 160's, ok to DC. Denies SHERIDAN, Dizziness, etc.
== END 2022-08-24 16:00 | disposition home or self-care (01) ==
PROVIDERS: PCP Family Medicine; Referring Provider Surgery; Visit Provider Surgery
PROC: 0DJD8ZZ Inspection of Lower Intestinal Tract, Via Natural or Artificial Opening Endoscopic (ICD-10-PCS; CPT 45378; principal; 2022-08-24 13:15)
DX: Z12.11 Encounter for screening for malignant neoplasm of colon (principal); Z80.0 Family history of malignant neoplasm of digestive organs; D12.3 Benign neoplasm of transverse colon; D12.4 Benign neoplasm of descending colon
CPT/HCPCS: 45380; J2704

== ENCOUNTER → 2022-10-11 14:28 | Outpatient (CLI) | payer OTHER, SELFPAY ==
--- NOTE | 2022-10-11 14:29 | DI.MG.S_ITS ---
BILATERAL DIGITAL SCREENING MAMMOGRAM 3D/2D WITH CAD: 10/11/2022 CLINICAL: Routine screening. Personal history of left breast cancer. Family history of breast cancer. Comparison is made to exams dated: 10/02/2021 mammogram, 09/17/2020 mammogram, 09/12/2019 mammogram, 07/08/2018 mammogram, and 06/21/2017 mammogram - [facility]. There are scattered areas of fibroglandular density in both breasts (category b / 25%-50% glandular tissue). Current study was also evaluated with a Computer Aided Detection (CAD) system. There are benign post operative findings in the left breast. No significant masses, calcifications, or other findings are seen in either breast. There has been no significant interval change. IMPRESSION: BENIGN There is no mammographic evidence of malignancy. A 1 year screening mammogram is recommended. This exam was interpreted at Station ID: [id number]. NOTE: For mammograms, a report in lay terms will be sent to the patient. Approximately 15% of breast malignancies will not be visualized mammographically. In the management of a palpable breast mass, a negative mammogram must not discourage biopsy of a clinically suspicious lesion. Electronically Signed By: Richard betts/huang:10/11/2022 18:26:00 copy to: MITCHELL TELLO letter sent: Normal Exam ACR BI-RADS Category 2: Benign Finding(s) 3342F
== END ==
PROVIDERS: PCP Family Medicine; Referring Provider Family Medicine; Visit Provider Family Medicine
DX: Z12.31 Encounter for screening mammogram for malignant neoplasm of breast (principal); Z85.3 Personal history of malignant neoplasm of breast; Z80.3 Family history of malignant neoplasm of breast
CPT/HCPCS: 77063; 77067

== ENCOUNTER → 2023-05-17 07:47 | Outpatient (CLI) | payer OTHER, SELFPAY ==
--- NOTE | 2023-05-17 07:49 | DI.US.S_ITS ---
PROCEDURE: US ABDOMEN COMPLETE INDICATIONS: DIARRHEA/RUQ ABD PAIN TECHNIQUE: Real-time scanning was performed of the abdominal and retroperitoneal organs, with image documentation. COMPARISON: [facility], US, ABDOMEN COMPLETE, 11/02/2011, 11:01. FINDINGS: Liver: Liver is normal in size and homogeneously increased in echotexture. Gallbladder: No gallstones. No wall thickening. No pericholecystic edema. Negative sonographic 's sign. Biliary ducts: Intrahepatic bile ducts are non-dilated. Extrahepatic bile duct caliber measures 3.8 mm. Normal is 6-7 mm or less in diameter, or 10 mm or less post-cholecystectomy. Pancreas: Visualized portions of the pancreas are sonographically normal. Miscellaneous: No free abdominal fluid. IMPRESSION: Fatty liver Dictated by: Maxime Pierre M.D. on 05/17/2023 at 11:20 Approved by: Maxime Pierre M.D. on 05/17/2023 at 11:22
== END ==
LOC: US 07:48
PROVIDERS: PCP Family Medicine; Referring Provider Family Medicine; Visit Provider Family Medicine
DX: K76.0 Fatty (change of) liver, not elsewhere classified (principal); R19.7 Diarrhea, unspecified; R10.11 Right upper quadrant pain
CPT/HCPCS: 76700

== ENCOUNTER → 2023-10-29 14:07 | Outpatient (CLI) | payer OTHER, SELFPAY ==
--- NOTE | 2023-10-29 14:08 | DI.MG.S_ITS ---
BILATERAL DIGITAL SCREENING MAMMOGRAM 3D/2D WITH CAD: 10/29/2023 CLINICAL: Routine screening. Family history of breast cancer. Breast cancer. Comparison is made to exams dated: 10/11/2022 mammogram, 10/02/2021 mammogram, and 09/17/2020 mammogram - [facility]. There are scattered areas of fibroglandular density in both breasts (category b / 25%-50% glandular tissue). Current study was also evaluated with a Computer Aided Detection (CAD) system. There are benign post operative findings in the left breast. No significant masses, calcifications, or other findings are seen in either breast. There has been no significant interval change. IMPRESSION: BENIGN There is no mammographic evidence of malignancy. A 1 year screening mammogram is recommended. This exam was interpreted at Station ID: [id number]. NOTE: For mammograms, a report in lay terms will be sent to the patient. Approximately 15% of breast malignancies will not be visualized mammographically. In the management of a palpable breast mass, a negative mammogram must not discourage biopsy of a clinically suspicious lesion. Electronically Signed By: Geovanni colvin/huang:10/29/2023 16:01:24 copy to: MITCHELL TELLO letter sent: Normal Exam ACR BI-RADS Category 2: Benign Finding(s) 3342F
== END ==
PROVIDERS: PCP Family Medicine; Referring Provider Family Medicine; Visit Provider Family Medicine
DX: Z12.31 Encounter for screening mammogram for malignant neoplasm of breast (principal); Z80.3 Family history of malignant neoplasm of breast; Z85.3 Personal history of malignant neoplasm of breast; R92.323 Mammographic fibroglandular density, bilateral breasts
CPT/HCPCS: 77063; 77067

== ENCOUNTER → 2024-10-29 15:56 | Outpatient (CLI) | payer OTHER, SELFPAY ==
--- NOTE | 2024-10-29 15:57 | DI.MG.S_ITS ---
MM screening mammo BI: 10/29/2024. BI-RADS: 2 CLINICAL: 64-year old female for bilateral screening mammogram. No Tyrer-Cuzick risk score calculation due to the patient's personal history of breast cancer. Patient reports a history of left breast carcinoma diagnosed at age 55. Status-post left lumpectomy with radiation therapy and chemotherapy. No first-degree family history of breast cancer. The patient had a prior left breast biopsy. PRIOR EXAMS 10/29/2023, 10/11/2022, 10/02/2021, MAMMOGRAPHY TECHNIQUE: 2D and 3D (tomosynthesis) digital mammographic views obtained, with additional images as needed for full coverage. Current study was also evaluated with a Computer Aided Detection (CAD) system. DENSITY B. There are scattered areas of fibroglandular density. MAMMOGRAPHY FINDINGS Right: No suspicious mass, asymmetry, microcalcification, or other abnormality seen. Left: Benign-appearing post-surgical changes noted on the left. There are no suspicious masses, calcifications, or other findings in the breast. IMPRESSION: Right * No evidence of malignancy. Left * No evidence of malignancy with benign findings. RECOMMENDATIONS Bilateral * Annual screening mammography. OVERALL ASSESSMENT CATEGORY BI-RADS-2: Benign. [employer] recommends annual screening mammography beginning at age 40 for women with average risk of breast cancer. ELECTRONICALLY SIGNED: Tabitha Traore M.D. on 10/30/2024 at 10:20:49 AM PT Interpreting Station ID: [id number]
== END ==
PROVIDERS: PCP Family Medicine; Referring Provider Family Medicine; Visit Provider Family Medicine
DX: Z12.31 Encounter for screening mammogram for malignant neoplasm of breast (principal); Z85.3 Personal history of malignant neoplasm of breast
CPT/HCPCS: 77063; 77067